=== PATIENT | female | born 1955 ===

== ENCOUNTER 2019-03-02 08:48 | Day surgery (SDC) | payer OTHER ==
[~2019-03-02 08:48] MED LIST: CALCIUM500 M1 PO; ZYRTEC10 M3 PO
[2019-03-02] MEDS ORDERED: DOXYCYCLINE HY100 M2 PO (17:40)
== END 2019-03-02 18:40 | disposition home or self-care (01) ==
LOC: CIR.AMB 08:48 → ADM 12:15 → CIR.AMB 12:15
DX: D25.0 Submucous leiomyoma of uterus (principal); N84.0 Polyp of corpus uteri